=== PATIENT | female | born 1985 | race African-American/Black ===

== ENCOUNTER 2017-05-05 14:28 | Emergency (ER) | payer SELFPAY ==
[~2017-05-05] VITALS: Ht 160 cm; Wt 65.9 kg
[~2017-05-05 14:28] MED LIST: CETI10TA22 PO; LORA10TA68 PO; SULF1TAB24 PO
--- NOTE | 2017-05-05 15:18 | PHYS DOC ---
General Chief Complaint: LACERATION/AVULSION Stated Complaint: THUMB LAC Time Seen by MD: 14:46 Source: patient Exam Limitations: no limitations Problems: History of Present Illness Initial Comments Patient is a 31-year-old female who comes to the ED complaining of right thumb laceration. Patient states immediately prior to arrival she was holding a porcelain coffee cup when the handle broke off causing a small cut at the anterior IP joint of her right thumb. Discomfort is mild with activity noted at rest. Tetanus status is unknown. Bleeding stopped prior to arrival with direct pressure. She has normal range of motion deficit and denies numbness tingling weakness or radiating symptoms. No pre-arrival treatment patient is normally healthy with no ongoing medical problems. Onset: just prior to arrival Pain/Injury Location: right thumb Method of Injury: incised Modifying Factors: worse with movement, improves with rest Allergies: Coded Allergies: No Known Drug Allergies (Unverified , 02/14/15) Past Medical History Medical History: no pertinent history Surgical History: noncontributory Social History Smoker: non-smoker Alcohol: none Drugs: none Review of Systems Constitutional: denies chills, denies fever Respiratory: denies cough, denies shortness of breath Cardiovascular: denies chest pain, denies palpitations Gastrointestinal: denies nausea, denies vomiting Musculoskeletal: see HPI Skin: see HPI Psychiatric/Neurological: see HPI Physical Exam General Appearance: WD/WN, no apparent distress Neck: full range of motion, supple Cardiovascular/Respiratory: normal peripheral pulses, no respiratory distress Hand: laceration (at the anterior aspect of the right thumb IP joint there is a very superficial flap-type laceration 0.5 cm in length crescent shape. No foreign bodies the skin is too thin for suture and contused tissue.) Neurologic/Tendon: normal sensation, normal motor functions, normal tendon functions, responds to pain, no evidence tendon injury Psychiatric: alert, oriented x 3 Skin: warm/dry (right thumb as above) Departure Time of Disposition: 15:16 Disposition: 01 HOME, SELF-CARE Diagnosis: right thumb laceration Condition: GOOD Patient Instructions: Fingertip Laceration Additional Instructions: Keep wound covered with sterile dressing until completely healed. Wash wound twice daily with soap and warm water, blot dry. Change dressing after each wash and allow the wound to air dry at least one hour daily. Monitor for new or changing symptoms which could be evidence of infection. Such symptoms do arise follow-up with your doctor. [id number] Tylenol as needed. Follow-up with your doctor in 3-5 days for a wound check as needed. Return to ED with new or changing symptoms. CASIE MENDOZA DO May 05, 2017 15:18
[2017-05-05] MEDS ORDERED: DIPHTH,PERTUSS(ACELL),TET TOX 0.5 ML DISP.SYRIN. VAX IM ONE (15:30)
[2017-05-05 15:41] VITALS: BP 103/68
== END 2017-05-05 15:44 | disposition home or self-care (01) ==
LOC: ER 14:28
DX: S61.011A Laceration without foreign body of right thumb without damage to nail, initial encounter (principal); W26.8XXA Contact with other sharp object(s), not elsewhere classified, initial encounter; Y93.89 Activity, other specified; Y92.89 Other specified places as the place of occurrence of the external cause; Y99.8 Other external cause status
CPT/HCPCS: 90471; 90715; 99283-25

== ENCOUNTER 2019-02-03 21:45 | Emergency (ER) | payer OTHER ==
[~2019-02-03] VITALS: Ht 160 cm; Wt 68.5 kg
[2019-02-03 22:03] VITALS: BP 132/81
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
== END 2019-02-03 23:30 | disposition home or self-care (01) ==
LOC: ER 21:45
DX: S70.02XA Contusion of left hip, initial encounter (principal); S80.02XA Contusion of left knee, initial encounter; Z87.440 Personal history of urinary (tract) infections; V58.5XXA Driver of pick-up truck or van injured in noncollision transport accident in traffic accident, initial encounter; Y93.I9 Activity, other involving external motion; Y92.488 Other paved roadways as the place of occurrence of the external cause; Y99.8 Other external cause status
CPT/HCPCS: 73502; 73562; 99284